=== PATIENT | male | born 1965 | race Caucasian/White ===

== ENCOUNTER 2021-02-14 16:45 | Emergency (ER) | payer MEDICAID ==
--- NOTE | 2021-02-14 18:34 | CR ---
Chest: Portable view of the chest was obtained. Comparison: No prior chest imaging is available. Heart size and mediastinum are within normal limits. Patchy areas of increased density are seen within both sides of the chest. Bony structures show nothing acute. Impression: 1. Patchy areas of increased density within both sides of the chest suspicious for Covid pneumonia. Please correlate. Diagnostic code #3
--- NOTE | 2021-02-14 18:55 | EDM.PDOC ---
ED HPI GENERAL MEDICAL PROBLEM - General Chief Complaint: General Stated Complaint: POSS COVID Time Seen by Provider: 02/14/21 17:07 Source of Information: Reports: Patient History Limitations: Reports: No Limitations - History of Present Illness INITIAL COMMENTS - FREE TEXT/NARRATIVE: 55-year-old male presents the emergency department today with complaints of generalized body aches, coughing, sore throat, subjective fevers, headache, poor appetite and increased fluid intake. Patient also complains of a scattered rash to his upper torso, chest and back. States that he has had the symptoms for about 10 days. He states that the rash started about 3 to 4 days ago. States it is not itchy or painful. He compares it to a heat rash. States he is otherwise healthy and does not smoke. His primary care provider is at [facility]. He did not have his Covid vaccine. And he suspects he may have Covid. Generalized Pain Score (Numeric/FACES): 8 - Related Data Allergies Allergy/AdvReac Type Severity Reaction Status Date / Time No Known Allergies Allergy Verified 02/14/21 17:04 Home Meds: Home Meds . [No Known Home Meds] 02/14/21 [History] Past Medical History Gastrointestinal History: Reports: Diverticulosis, Other (See Below) Other Gastrointestinal History: diverticulitis. - Infectious Disease History Infectious Disease History: Reports: Chicken Pox, Measles, Mumps, Novel Coronavirus Social & Family History - Tobacco Use Tobacco Use Status *Q: Never Tobacco User Second Hand Smoke Exposure: No - Caffeine Use Caffeine Use: Reports: Coffee - Recreational Drug Use Recreational Drug Use: No ED ROS GENERAL - Review of Systems Review Of Systems: Comprehensive ROS is negative, except as noted in HPI. ED EXAM, GENERAL - Physical Exam Exam: See Below Exam Limited By: No Limitations General Appearance: Alert, WD/WN, No Apparent Distress Ears: Normal External Exam, Hearing Grossly Normal Nose: Normal Inspection Throat/Mouth: Normal Inspection, Normal Lips, Normal Voice, No Airway Compromise Head: Atraumatic Neck: Normal Inspection, Supple Respiratory/Chest: No Respiratory Distress, No Accessory Muscle Use, Crackles (Crackles noted to the right middle and lower lobe as well as left lower lobe), Other (Maculopapular rash noted to the chest and abdomen) Cardiovascular: Normal Peripheral Pulses, Regular Rate, Rhythm, No Edema, No Murmur, Tachycardia Peripheral Pulses: 2+: Radial (L), Radial (R) GI/Abdominal: Normal Bowel Sounds, Soft, Non-Tender, No Distention (Male) Exam: Deferred Rectal (Males) Exam: Deferred Back Exam: Normal Inspection Extremities: Normal Inspection, Normal Range of Motion, Non-Tender, No Pedal Edema, Normal Capillary Refill Neurological: Alert, Oriented, Normal Cognition Psychiatric: Normal Affect, Normal Mood Skin Exam: Warm, Dry, Intact, Normal Color, Rash (Chest and abdomen) Lymphatic: No Adenopathy #1 Interpretation EKG Date: 02/14/21 Time: 18:21 Rhythm: NSR Rate (Beats/Min): 102 [place]: Normal P-Wave: Present QRS: Normal ST-T: Normal QT: Normal Comparison: NA - No Prior EKG EKG Interpretation Comments: Per Dr. Grace interpretation: Sinus tachycardia at 102 bpm; baseline wander in leads I, 2, 3, aVR, aVF, V2, V4, V6 Course - Vital Signs Text/Narrative:: Stated above patient presents with 10-day history of Covid-like symptoms. At the time of my exam, the patient is tachypneic and tachycardic and O2 saturations are 94% on room air. Skin is hot to touch and he is diaphoretic. He does have a maculopapular rash on his abdomen and chest. I do not appreciate any rash on his back. Lung sounds have scattered crackles noted to the right middle and lower lobe as well as the left lower lobe. Will obtain a Covid swab on the patient. We will also tape lab studies to include a CBC, CMP, magnesium, C-reactive protein and a D-dimer. We will also obtain a portable chest x-ray. Last Recorded V/S: Last Vital Signs Temp 96.5 F L 02/14/21 17:00 Pulse 100 02/14/21 19:04 Resp 32 H 02/14/21 17:00 BP 127/88 02/14/21 19:04 Pulse Ox 95 02/14/21 19:04 - Orders/Labs/Meds Orders: Active Orders 24 hr Category Date Time Status Vital Signs [RC] Q15M Care 02/14/21 20:00 Active EPINEPHrine [Adrenalin] Med 02/14/21 20:00 Active 0.3 mg IM ASDIRECTED PRN Famotidine [Pepcid] Med 02/14/21 20:00 Active 20 mg IVPUSH ASDIRECTED PRN Sodium Chloride 0.9% [Saline Flush] Med 02/14/21 20:00 Active 30 ml FLUSH ASDIRECTED diphenhydrAMINE [Benadryl] Med 02/14/21 20:00 Active 50 mg IVPUSH ASDIRECTED PRN methylPREDNISolone Sod Succ [Solu-MEDROL] Med 02/14/21 20:00 Active 125 mg IVPUSH ASDIRECTED PRN Medication Orders Diphenhydramine HCl (Diphenhydramine 50 Mg/Ml Sdv) 50 mg IVPUSH ASDIRECTED PRN PRN Reason: hypersensitivity reaction Epinephrine HCl (Epinephrine 1 Mg/Ml Sdv) 0.3 mg IM ASDIRECTED PRN PRN Reason: hypersensitivity reaction Famotidine (Famotidine 20 Mg/2 Ml Sdv) 20 mg IVPUSH ASDIRECTED PRN PRN Reason: hypersensitivity reaction Methylprednisolone Sodium Succinate (Methylprednisolone Sodium Succinate 125 Mg/2 Ml Sdv) 125 mg IVPUSH ASDIRECTED PRN PRN Reason: hypersensitivity reaction Sodium Chloride (Sodium Chloride 0.9% 10 Ml Syringe) 30 ml FLUSH ASDIRECTED [facility] Labs: Laboratory Tests 02/14/21 02/14/21 02/14/21 Range/Units 17:00 18:59 18:59 WBC 7.76 (4.23-9.07) K/mm3 RBC 5.40 (4.63-6.08) M/mm3 Hgb 14.7 (13.7-17.5) gm/dl Hct 44.5 (40.1-51.0) % MCV 82.4 (79.0-92.2) fl MCH 27.2 (25.7-32.2) pg MCHC 33.0 (32.2-35.5) g/dl RDW Std Deviation 47.3 H (35.1-43.9) fL Plt Count 258 (163-337) K/mm3 MPV 8.8 L (9.4-12.3) fl Neut % (Auto) 74.6 H (34.0-67.9) % Lymph % (Auto) 13.0 L (21.8-53.1) % [place] % (Auto) 11.3 (5.3-12.2) % Eos % (Auto) 0 L (0.8-7.0) Baso % (Auto) 0.3 (0.1-1.2) % Neut # (Auto) 5.79 H (1.78-5.38) K/mm3 Lymph # (Auto) 1.01 L (1.32-3.57) K/mm3 [place] # (Auto) 0.88 H (0.30-0.82) K/mm3 Eos # (Auto) 0.00 L (0.04-0.54) K/mm3 Baso # (Auto) 0.02 (0.01-0.08) K/mm3 Manual Slide Review D-Dimer, Quantitative 0.94 H (0.19-0.50) mg/L Sodium (136-145) mEq/L Potassium (3.5-5.1) mEq/L Chloride (98-107) mEq/L Carbon Dioxide (21-32) mEq/L Anion Gap (5-15) BUN (7-18) mg/dL Creatinine (0.7-1.3) mg/dL Est Cr Clr Drug Dosing mL/min Estimated GFR (MDRD) (>60) mL/min BUN/Creatinine Ratio (14-18) Glucose (70-99) mg/dL Calcium (8.5-10.1) mg/dL Magnesium (1.8-2.4) mg/dL Total Bilirubin (0.2-1.0) mg/dL AST (15-37) U/L ALT (16-63) U/L Alkaline Phosphatase (46-116) U/L C-Reactive Protein (<1.0) mg/dL Total Protein (6.4-8.2) g/dl Albumin (3.4-5.0) g/dl Globulin gm/dL Albumin/Globulin Ratio (1-2) SARS-CoV-2 RNA (XANDER) Positive H (NEGATIVE) 02/14/21 Range/Units 18:59 WBC (4.23-9.07) K/mm3 RBC (4.63-6.08) M/mm3 Hgb (13.7-17.5) gm/dl Hct (40.1-51.0) % MCV (79.0-92.2) fl MCH (25.7-32.2) pg MCHC (32.2-35.5) g/dl RDW Std Deviation (35.1-43.9) fL Plt Count (163-337) K/mm3 MPV (9.4-12.3) fl Neut % (Auto) (34.0-67.9) % Lymph % (Auto) (21.8-53.1) % [place] % (Auto) (5.3-12.2) % Eos % (Auto) (0.8-7.0) Baso % (Auto) (0.1-1.2) % Neut # (Auto) (1.78-5.38) K/mm3 Lymph # (Auto) (1.32-3.57) K/mm3 [place] # (Auto) (0.30-0.82) K/mm3 Eos # (Auto) (0.04-0.54) K/mm3 Baso # (Auto) (0.01-0.08) K/mm3 Manual Slide Review D-Dimer, Quantitative (0.19-0.50) mg/L Sodium 134 L (136-145) mEq/L Potassium 3.9 (3.5-5.1) mEq/L Chloride 99 (98-107) mEq/L Carbon Dioxide 25 (21-32) mEq/L Anion Gap 13.9 (5-15) BUN 15 (7-18) mg/dL Creatinine 1.2 (0.7-1.3) mg/dL Est Cr Clr Drug Dosing 74.08 mL/min Estimated GFR (MDRD) > 60 (>60) mL/min BUN/Creatinine Ratio 12.5 L (14-18) Glucose 120 H (70-99) mg/dL Calcium 8.0 L (8.5-10.1) mg/dL Magnesium 2.2 (1.8-2.4) mg/dL Total Bilirubin 0.8 (0.2-1.0) mg/dL AST 30 (15-37) U/L ALT 34 (16-63) U/L Alkaline Phosphatase 67 (46-116) U/L C-Reactive Protein 8.6 H* (<1.0) mg/dL Total Protein 7.6 (6.4-8.2) g/dl Albumin 3.1 L (3.4-5.0) g/dl Globulin 4.5 gm/dL Albumin/Globulin Ratio 0.7 L (1-2) SARS-CoV-2 RNA (XANDER) (NEGATIVE) Meds: Medications Generic Name Dose Route Start Last Admin Trade Name Freq PRN Reason Stop Dose Admin Diphenhydramine HCl 50 mg 02/14/21 20:00 Diphenhydramine 50 Mg/Ml Sdv IVPUSH ASDIRECTED PRN hypersensitivity reaction Epinephrine HCl 0.3 mg 02/14/21 20:00 Epinephrine 1 Mg/Ml Sdv IM ASDIRECTED PRN hypersensitivity reaction Famotidine 20 mg 02/14/21 20:00 Famotidine 20 Mg/2 Ml Sdv IVPUSH ASDIRECTED PRN hypersensitivity reaction Methylprednisolone Sodium Succinate 125 mg 02/14/21 20:00 Methylprednisolone Sodium Succinate 125 Mg/2 Ml Sdv IVPUSH ASDIRECTED PRN hypersensitivity reaction Sodium Chloride 30 ml 02/14/21 20:00 Sodium Chloride 0.9% 10 Ml Syringe FLUSH ASDIRECTED ANTONIO Discontinued Medications Generic Name Dose Route Start Last Admin Trade Name Freq PRN Reason Stop Dose Admin Hydromorphone HCl 0.25 mg 02/14/21 19:52 Hydromorphone 0.5 Mg/0.5 Ml Syringe IVPUSH 02/14/21 19:53 ONETIME ONE Sodium Chloride 1,000 mls @ 75 mls/hr 02/14/21 20:00 Normal Saline IV ASDIRECTED ANTONIO CASIRIVIMAB/IMDEVIMAB 10 ml/ 110 mls @ 220 mls/hr 02/14/21 20:00 02/14/21 20:50 Sodium Chloride IV 02/14/21 20:29 220 mls/hr ONETIME ONE Administration Metoclopramide HCl 5 mg 02/14/21 19:52 Metoclopramide 10 Mg/2 Ml Sdv IVPUSH 02/14/21 19:53 ONETIME ONE - Re-Assessments/Exams Free Text/Narrative Re-Assessment/Exam: 02/14/21 18:49 Radiologist impression portable view of the chest: One. Patchy areas of increased density within both sides of the chest suspicious for Covid pneumonia. Please correlate. 02/14/21 19:58 Hematology reveals a WBC of 7.76, hemoglobin 14.7, hematocrit 44.5, platelet count 258 D-dimer 0.94 Chemistry reveals a sodium of 134, potassium 3.9, carbon dioxide 25, anion gap 13.9, BUN 15, creatinine 1.2, glucose 120, calcium 8.0, C-reactive protein 8.6, Serology reveals a positive Covid test I spoke with the patient to provide information about Regeneron for himself. I offered her the fax sheet for patients and caregivers for Regeneron to read and review. I stated the therapy has been approved by an emergency use authorization process and has not fully been FDA reviewed or approved. I shared the potential risks from the therapy including risks/adverse reactions. I discussed there are other potential treatment options that are currently not FDA approved to treat COVID-19. Offered opportunity ask questions and all questions were answered. Patient voiced understanding and agreed to proceed with treatment for himself. 02/14/21 22:32 Patient received his monoclonal antibodies and has been monitored for 1 hour after. He will be discharged home. Departure - Departure Time of Disposition: 22:33 Disposition: Home, Self-Care 01 Condition: Good Clinical Impression: COVID-19 - Discharge Information Referrals: PCP,None [Primary Care Provider] - Forms: ED Department Discharge Additional Instructions: You were seen in the emergency department with Covid-like symptoms. Covid swab was completed and this did come back positive. Lab studies and a chest x-ray were also completed. Labs were essentially unremarkable. Chest x-ray did show pneumonia related to Covid however this is viral in origin and cannot be treated with antibiotics. Your oxygen levels were greater than 90% while in the emergency department. You received monoclonal antibodies which as discussed are shown to decrease the length and severity of your Covid symptoms. However, you are at day 10 of your symptoms so it is variable whether or not you will see a significant decrease in your symptoms. Go home, rest, drink plenty of fluids and eat small frequent meals. May take Tylenol 650 mg every 4 hours as needed for fever or discomfort or ibuprofen 600 mg every 6-8 hours as needed for fever or discomfort. Should your condition worsen or change, do not hesitate returning to the emergency department. Sepsis Event Note (ED) - Evaluation Sepsis Screening Result: No Definite Risk - Focused Exam Vital Signs: Vital Signs Temp Pulse Resp BP Pulse Ox 02/14/21 19:04 100 127/88 95 02/14/21 17:00 96.5 F L 114 H 32 H 129/74 90 L - My Orders Last 24 Hours: My Active Orders 02/14/21 20:00 Vital Signs [RC] Q15M EPINEPHrine [Adrenalin] 0.3 mg IM ASDIRECTED PRN Famotidine [Pepcid] 20 mg IVPUSH ASDIRECTED PRN Sodium Chloride 0.9% [Saline Flush] 30 ml FLUSH ASDIRECTED diphenhydrAMINE [Benadryl] 50 mg IVPUSH ASDIRECTED PRN methylPREDNISolone Sod Succ [Solu-MEDROL] 125 mg IVPUSH ASDIRECTED PRN - Assessment/Plan Last 24 Hours: My Active Orders 02/14/21 20:00 Vital Signs [RC] Q15M EPINEPHrine [Adrenalin] 0.3 mg IM ASDIRECTED PRN Famotidine [Pepcid] 20 mg IVPUSH ASDIRECTED PRN Sodium Chloride 0.9% [Saline Flush] 30 ml FLUSH ASDIRECTED diphenhydrAMINE [Benadryl] 50 mg IVPUSH ASDIRECTED PRN methylPREDNISolone Sod Succ [Solu-MEDROL] 125 mg IVPUSH ASDIRECTED PRN
[2021-02-14] MEDS ORDERED: HYDROmorphone 0.5 MG/0.5 ML Syringe IVPUSH ONE (19:52)
[2021-02-14] MEDS ORDERED: Metoclopramide 10 MG/2 ML SDV IVPUSH ONE (19:52)
[2021-02-14] MEDS ORDERED: diphenhydrAMINE 50 MG/ML SDV IVPUSH PRN (20:00)
[2021-02-14] MEDS ORDERED: methylPREDNISolone Sodium Succinate 125 MG/2 ML SDV IVPUSH PRN (20:00)
[2021-02-14] MEDS ORDERED: EPINEPHrine 1 MG/ML SDV IM PRN (20:00)
[2021-02-14] MEDS ORDERED: Sodium Chloride 0.9% 1,000 ML IV SCH (20:00)
[2021-02-14] MEDS ORDERED: Sodium Chloride 0.9% 10 ML Syringe FLUSH SCH (20:00)
[2021-02-14] MEDS ORDERED: Famotidine 20 MG/2 ML SDV IVPUSH PRN (20:00)
== END 2021-02-14 23:00 | disposition home or self-care (01) ==
LOC: JD.ED 16:45
DX: U07.1 COVID-19 (principal); Z86.16 Personal history of COVID-19
CPT/HCPCS: 36415; 71045; 80053; 83735; 85025; 85379; 86140; 87635; 93005; 99284; M0243; Q0243; U0002